=== PATIENT | female | born 1995 | race Caucasian/White ===

== ENCOUNTER 2016-10-31 17:40 | Emergency (ER) | payer OTHER ==
[2016-10-31] MEDS ORDERED: Ondansetron INJ* 2 MG/ML VIAL IV ONE (19:47)
[2016-10-31] MEDS ORDERED: NS 0.9% 1000 ML* 2,000 ML IV ONE (19:47)
[2016-10-31] MEDS ORDERED: NS 0.9% 1000 ML* 1,000 ML IV SCH (20:00)
[2016-10-31 20:12] LABS: Hematocrit 42 % (35-47); Hemoglobin 14.3 g/dl (12.0-16.0); Mean Corpuscular HGB Conc 34 g/dl (31-36); Mean Corpuscular Hemoglobin 30 pg (27-31); Mean Corpuscular Volume 88 fL (80-97); Mean Platelet Volume 7 um3 (7.4-10.4); Red Blood Count 4.71 10^6/ul (4.0-5.4); Red Cell Distribution Width 13 % (10.5-15); White Blood Count 10.6 10^3/ul (3.5-10.8)
[2016-10-31 20:28] LABS: ALT 17 U/L (7-52); AST 20 U/L (13-39); Albumin 4.8 g/dL (3.2-5.2); Alkaline Phosphatase 53 U/L (34-104); Anion Gap 8 mmol/L (2-11); BUN/Creatinine Ratio 10.4 (8-20); Blood Urea Nitrogen 8 mg/dL (6-24); CO2 Carbon Dioxide 26 mmol/L (22-32); Calcium 9.6 mg/dL (8.6-10.3); Chloride 103 mmol/L (101-111); EGFR African American 122.9 (>60); EGFR Non-African American 95.6 (>60); Globulin 2.8 g/dL (2-4); Glucose 86 mg/dL (70-100); Lipase 19 U/L (11.0-82.0); Potassium 3.8 mmol/L (3.5-5.0); Sodium 137 mmol/L (133-145); Total Protein 7.6 g/dL (6.4-8.9)
[2016-10-31 21:28] LABS: Urine Bacteria Absent (Absent); Urine Bilirubin Negative (Negative); Urine Glucose Negative (Negative); Urine Nitrite Negative (Negative)
--- NOTE | 2016-10-31 21:41 | ED ---
Yoana Quinones Edward, scribed for Jose Barrios on 10/31/16 at 1942 . Abdominal Pain/Female - HPI Summary HPI Summary: 20 y/o female presents to the ED c/o gradual onset diffuse ABD pain described as a burning sensation starting 10 days ago that has been getting progressively worse since it started. The ABD started when the pt was in [place]. The pain wakes her up at night, rated 6/10 in severity at triage. Associated sx: nausea, non- stop diarrhea (7x today, 3x yesterday, for one week in total), and weakness. Denies blood in stool. No relevant FHx. - History of Current Complaint Chief Complaint: EDAbdPain Stated Complaint: WEAK,ABD PAIN Time Seen by Provider: 10/31/16 19:37 Hx Obtained From: Patient Severity Currently: Moderate Pain Intensity: 6 Pain Scale Used: 0-10 Numeric Location: Diffuse Character: Burning Associated Signs and Symptoms: Positive: Nausea, Diarrhea, Other: - weakness Allergies/Adverse Reactions: Allergies Allergy/AdvReac Type Severity Reaction Status Date / Time No Known Allergies Allergy Verified 10/31/16 17:52 PMH/Surg Hx/FS Hx/Imm Hx Previously Healthy: Yes Cardiovascular History: Denies: Hx Myocardial Infarction Psychiatric History: Denies: Other Psychiatric Issues/Disorders Infectious Disease History: Reports: Traveled Outside the [place] in Last 30 Days - [place] - Family History Known Family History: Negative: Cardiac Disease, Hypertension, Diabetes - Social History Occupation: Student Lives: With Family Alcohol Use: None Hx Substance Use: No Substance Use Type: Reports: None Hx Tobacco Use: No Smoking Status (MU): Never Smoked Tobacco Review of Systems Constitutional: Negative Eyes: Negative ENT: Negative Cardiovascular: Negative Respiratory: Negative Positive: Abdominal Pain, Diarrhea, Nausea Genitourinary: Negative Musculoskeletal: Negative Skin: Negative Positive: Weakness Psychological: Normal All Other Systems Reviewed And Are Negative: Yes Physical Exam Triage Information Reviewed: Yes Vital Signs On Initial Exam: Initial Vitals Temp Pulse Resp BP Pulse Ox 98.4 F 95 16 137/94 97 10/31/16 17:50 10/31/16 17:50 10/31/16 17:50 10/31/16 17:50 10/31/16 17:50 Vital Signs Reviewed: Yes Appearance: Positive: Well-Appearing, No Pain Distress Skin: Positive: Warm, Skin Color Reflects Adequate Perfusion, Dry Head/Face: Positive: Normal Head/Face Inspection Eyes: Positive: EOMI, LENO ENT: Positive: Normal ENT inspection Neck: Positive: Supple, Nontender Respiratory/Lung Sounds: Positive: Clear to Auscultation, Breath Sounds Present Cardiovascular: Positive: RRR, Pulses are Symmetrical in both Upper and Lower Extremities Abdomen Description: Positive: Soft, Other: - Diffuse tenderness Bowel Sounds: Positive: Present Musculoskeletal: Positive: Normal, Strength/ROM Intact Neurological: Positive: Normal, Sensory/Motor Intact, Alert, Oriented to Person Place, Time Diagnostics - Vital Signs Vital Signs Temp Pulse Resp BP Pulse Ox 10/31/16 17:50 98.4 F 95 16 137/94 97 - Laboratory Result Diagrams: 10/31/16 20:00 10/31/16 20:00 Lab Statement: Any lab studies that have been ordered have been reviewed, and results considered in the medical decision making process. Abdominal Pain Fem Course/Dx - Course Course Of Treatment: 20 y/o female presents to the ED c/o gradual onset diffuse ABD pain described as a burning sensation starting 10 days ago that has been getting progressively worse since it started. The ABD started when the pt was in [place]. The pain wakes her up at night, rated 6/10 in severity at triage. Associated sx: nausea, non-stop diarrhea (7x today, 3x yesterday, for one week in total), and weakness. Denies blood in stool. No relevant FHx. Pt will be signed out to Dr. Church at shift change pending CT results. - Diagnoses Provider Diagnoses: Abdominal pain Discharge - Discharge Plan Condition: Stable Disposition: OTHER Discharge Disposition Comment: Pt will be signed out to Dr. Church at shift change pending CT results. The documentation as recorded by the Yoana chávez Edward accurately reflects the service I personally performed and the decisions made by , Jose Barrios.
[2016-10-31] MEDS ORDERED: Iohexol 300* (CONTRAST) 10 ML SDV IV ONE (21:57)
[2016-10-31 23:36] VITALS: BP 131/88
--- NOTE | 2016-11-01 07:36 | RAD ---
CLINICAL HISTORY: Appendicitis, abdominal pain diarrhea COMPARISON: None TECHNIQUE: Multiple contiguous axial CT scans were obtained of the abdomen and pelvis after the administration of intravenous contrast. Coronal and sagittal multiplanar reformations are submitted for review. Oral contrast was administered. Delayed images were obtained through the abdomen and pelvis. FINDINGS: LUNG BASES: The lung bases are clear. LIVER: The liver is normal in shape, size, contour, and attenuation. BILE DUCTS: There is no intrahepatic or extrahepatic biliary dilatation. GALLBLADDER: The gallbladder is normal, without pericholecystic inflammatory change. PANCREAS: The pancreas is normal, without mass or ductal dilatation. SPLEEN: Normal in size and appearance. UPPER GI TRACT: Evaluation of the gastrointestinal tract is limited by incomplete gastric distention. The upper GI tract is unremarkable. SMALL BOWEL AND MESENTERY: The small bowel is normal in contour, course, and caliber. There is no obstruction or dilatation. There are mildly prominent mesenteric lymph nodes. There is minimal mesenteric inflammatory change at the ileocecal junction. COLON: The colon is normal in contour, course, caliber. There is no pericolonic inflammatory change. There is a tubular, vermiform, hollow viscus that is blind ending, and originates from the cecum, consistent with a normal appendix. There is no periappendiceal inflammatory change. This is best seen on coronal images 41 through 52. ADRENALS: Normal bilaterally. KIDNEYS: The kidneys are normal in shape, size, contour, and axis. There is no hydronephrosis or nephrolithiasis. BLADDER: The bladder is smooth in contour. PELVIC ORGANS: The uterus and adnexa are grossly normal for technique. AORTA: The aorta is normal. IVC: Unremarkable LYMPH NODES: There is no lymphadenopathy by size criteria. ABDOMINAL WALL: There is no evidence for abdominal wall hernia. BONES AND SOFT TISSUES: Unremarkable OTHER: None IMPRESSION: 1. NORMAL APPENDIX. 2. MILD INFLAMMATORY CHANGE AND MILDLY PROMINENT MESENTERIC LYMPH NODES AT THE LEVEL OF THE ILEOCECAL JUNCTION.
== END 2016-10-31 23:37 ==
LOC: ED 17:40
DX: R10.9 Unspecified abdominal pain (principal); R19.7 Diarrhea, unspecified; R53.1 Weakness
CPT/HCPCS: 36415; 74177; 80053; 81003; 81015; 83690; 84702; 85025; 85610; 85730; 87045; 87046; 87077; 87899; 99283; J2405; Q9967

== ENCOUNTER 2017-01-27 06:23 | Emergency (ER) | payer OTHER ==
[2017-01-27] MEDS ORDERED: NS 0.9% 1000 ML* 1,000 ML IV ONE (07:20)
--- NOTE | 2017-01-27 08:26 | RAD ---
INDICATION: Right lower quadrant pain COMPARISON: None TECHNIQUE: Transverse and longitudinal scans of the right lower quadrant were performed utilizing grayscale and color Doppler imaging. FINDINGS: The appendix not visualized. There is no free fluid or mass in the right lower quadrant. IMPRESSION: NONVISUALIZATION APPENDIX. CLINICAL MANAGEMENT IS THEREFORE REQUIRED.
[2017-01-27 08:34] LABS: Hematocrit 39 % (35-47); Mean Corpuscular HGB Conc 34 g/dl (31-36); Mean Corpuscular Hemoglobin 29 pg (27-31); Mean Corpuscular Volume 88 fL (80-97); Mean Platelet Volume 8 um3 (7.4-10.4); Red Blood Count 4.42 10^6/ul (4.0-5.4); Red Cell Distribution Width 13 % (10.5-15); White Blood Count 7.8 10^3/ul (3.5-10.8)
[2017-01-27 08:52] LABS: ALT 8 U/L (7-52); AST 12 U/L (13-39); Albumin 4.2 g/dL (3.2-5.2); Alkaline Phosphatase 55 U/L (34-104); Amylase 58 U/L (29-103); Anion Gap 4 mmol/L (2-11); BUN/Creatinine Ratio 12.7 (8-20); Blood Urea Nitrogen 8 mg/dL (6-24); C Reactive Protein < 1.00 mg/L (< 5.00); CO2 Carbon Dioxide 27 mmol/L (22-32); Calcium 9.4 mg/dL (8.6-10.3); Chloride 105 mmol/L (101-111); EGFR African American 153.4 (>60); EGFR Non-African American 119.3 (>60); Globulin 2.7 g/dL (2-4); Glucose 94 mg/dL (70-100); Lipase 21 U/L (11.0-82.0); Potassium 3.7 mmol/L (3.5-5.0); Sodium 136 mmol/L (133-145); Total Protein 6.9 g/dL (6.4-8.9)
[2017-01-27] MEDS ORDERED: Ketorolac INJ* 30 MG/ML 1 ML VIAL IV PUSH ONE (09:47)
--- NOTE | 2017-01-27 10:01 | RAD ---
Indication: Right-sided pelvic pain. Real-time sonography of the pelvis was performed. The uterus measures 7.5 x 3.0 x 5.8 cm. Endometrial echo measures 7 mm. The right lobe measures 3.4 x 1.7 x 2.6 cm. A small amount of free fluid is noted adjacent to the right ovary. Left ovary measures 3.2 x 1.8 x 2.5 cm. No adnexal masses are noted. Flow is noted in both ovaries. IMPRESSION: Small amount of free fluid surrounding the right ovary. Otherwise unremarkable pelvic ultrasound.
[2017-01-27 10:23] LABS: Urine Bilirubin Negative (Negative); Urine Glucose Negative (Negative); Urine Nitrite Negative (Negative)
[2017-01-27 10:55] VITALS: BP 133/82
--- NOTE | 2017-01-28 07:41 | ED ---
Jamie Quinones Angela, scribed for Kishor Clifton MD on 01/27/17 at 0710 . Abdominal Pain/Female - HPI Summary HPI Summary: This pt is a 21 y/o female presenting to [facility] c/o RLQ abd pain since 529 today. Pt notes she woke up with the pain this morning. She describes her pain as non-radiating and as pressure, fullness, and bloating. She rates her pain 4/ 10 in severity. Associated symptoms include nausea. Pt denies vomiting, diarrhea. LMP: January 07. Pt notes she has severe painful periods every month. She denies any past surgeries. Pt was in the ED in late Oct/early Nov for abd pain. - History of Current Complaint Chief Complaint: EDAbdPain Stated Complaint: RIGHT SIDED FLANK PAIN Hx Obtained From: Patient Onset/Duration: Lasting Hours, Still Present Timing: Hours Severity Currently: Moderate Pain Intensity: 4 Pain Scale Used: 0-10 Numeric Location: Discrete At: RLQ Radiates: No Character: Other: - pressure, fullness Associated Signs and Symptoms: Positive: Nausea. Negative: Vomiting, Diarrhea Allergies/Adverse Reactions: Allergies Allergy/AdvReac Type Severity Reaction Status Date / Time No Known Allergies Allergy Verified 01/27/17 06:31 PMH/Surg Hx/FS Hx/Imm Hx Endocrine/Hematology History: Denies: Hx Diabetes Cardiovascular History: Denies: Hx Hypertension, Hx Myocardial Infarction History: Denies: Hx Dialysis, Hx Renal Disease Psychiatric History: Denies: Other Psychiatric Issues/Disorders - Immunization History Date of Tetanus Vaccine: utd Date of Influenza Vaccine: fall 2015 Infectious Disease History: No Infectious Disease History: Denies: Traveled Outside the [place] in Last 30 Days - Family History Known Family History: Negative: Cardiac Disease, Hypertension, Diabetes - Social History Alcohol Use: None Hx Substance Use: No Substance Use Type: Reports: None Hx Tobacco Use: No Smoking Status (MU): Never Smoked Tobacco Review of Systems Negative: Fever, Chills Eyes: Negative ENT: Negative Cardiovascular: Negative Respiratory: Negative Positive: Abdominal Pain, Nausea. Negative: Vomiting, Diarrhea Genitourinary: Negative All Other Systems Reviewed And Are Negative: Yes Physical Exam - Summary Physical Exam Summary: VITAL SIGNS: Reviewed. GENERAL: Patient is a well-developed and nourished female who is lying comfortable in the stretcher. Patient is not in any acute respiratory distress. HEAD AND FACE: Normocephalic and atraumatic. EYES: PERRLA, EOMI x 2, No injected conjunctiva. EARS: Hearing grossly intact. Ear canals and tympanic membranes are WNL. MOUTH: Oropharynx within normal limits. NECK: Supple, trachea is midline, no adenopathy, no JVD. CHEST: Symmetric, no tenderness at palpation LUNGS: Clear to auscultation bilaterally. No wheezing or crackles. CVS: RRR, S1 and S2 present, no murmurs or gallops appreciated. ABDOMEN: Soft. RLQ tenderness. No signs of distention. Positive bowel sounds. No rebound no guarding, and no masses palpated. No abdominal bruit or pulsations. Right pelvic tenderness. EXTREMITIES: FROM in all major joints, no edema, no cyanosis or clubbing. NEURO: Alert and oriented x 3. No acute neurological deficits. Speech is normal. SKIN: Dry and warm Triage Information Reviewed: Yes Vital Signs On Initial Exam: Initial Vitals Temp Pulse Resp BP Pulse Ox 98.2 F 92 16 133/86 99 01/27/17 06:29 01/27/17 06:29 01/27/17 06:29 01/27/17 06:29 01/27/17 06:29 Vital Signs Reviewed: Yes - Omega Coma Scale Coma Scale Total: 15 Diagnostics - Vital Signs Vital Signs Temp Pulse Resp BP Pulse Ox 01/27/17 06:29 98.2 F 92 16 133/86 99 - Laboratory Result Diagrams: 01/27/17 08:20 01/27/17 08:20 Lab Statement: Any lab studies that have been ordered have been reviewed, and results considered in the medical decision making process. - Ultrasound No standard instances Ultrasound Interpretation: Positive (See Comments) - Appendix US IMPRESSION: Nonvisualization appendix. Clinical management is therefore required. ED physician has reviewed this radiology report and agrees. Ultrasound Interpretation Completed By: Radiologist - Additional Comments Diagnostic Additional Comments: Pelvic US, per radiologist: IMPRESSION: Small amount of free fluid surrounding the right ovary. Otherwise unremarkable pelvic ultrasound. ED physician has reviewed this radiology report and agrees. Re-Evaluation - Re-Evaluation First Eval Re-Evaluation Time: 10:35 Comment: I reviewed the US appendix and pelvic results with the pt. Abdominal Pain Fem Course/Dx - Course Course Of Treatment: This pt is a 21 y/o female presenting to [facility] c/o RLQ abd pain since 529 today. Pt notes she woke up with the pain this morning. She describes her pain as non-radiating and as pressure, fullness, and bloating. She rates her pain 4/10 in severity. Associated symptoms include nausea. Pt denies vomiting, diarrhea. LMP: January 07. Pt notes she has severe painful periods every month. She denies any past surgeries. Pt was in the ED in late Oct/early Nov for abd pain. Test results without any significant abnormalities. Urinalysis is negative for a UTI. test is negative. Appendix US shows nonvisualization appendix. Clinical management is therefore required. Pelvic US reveals Small amount of free fluid surrounding the right ovary. Otherwise unremarkable pelvic ultrasound. Both tests are negative. Pt is not sexually active therefore she declined a pelvic exam. I have no suspicion for appendicitis because in the physical exam the RLQ pain has decreased and there is no elevated WBC or CRP. I discussed the test results and findings with the pt and she also agrees that at this time we wont do an abd/ pel CT. However, she was strongly recommend that if she has increased pain in RLQ, nausea, vomiting, and fever she should immediately return to the ED to rule out acute appendicitis. However, at this time the pain has resolved, she is ambulating and drinking/eating without any abnormalities. - Diagnoses Provider Diagnoses: RLQ abdominal pain Discharge - Discharge Plan Condition: Stable Disposition: HOME Patient Education Materials: Abdominal Pain (ED) Referrals: [facility] - Pradeep STANFORD [Primary Care Provider] - Additional Instructions: Please follow up with your primary care provider. RETURN TO THE ED FOR ANY WORSENING SYMPTOMS. The documentation as recorded by the Jamie chávez Angela accurately reflects the service I personally performed and the decisions made by me, Kishor Clifton MD.
== END 2017-01-27 10:53 | disposition home or self-care (01) ==
LOC: ED 06:23
DX: R10.31 Right lower quadrant pain (principal); R11.0 Nausea
CPT/HCPCS: 36415; 76705; 76856; 80053; 81003; 82150; 83690; 84702; 85025; 86140; 96374; 99283

== ENCOUNTER 2018-09-30 22:27 | Emergency (ER) | payer OTHER ==
--- NOTE | 2018-10-01 01:05 | ED ---
HPI Chest Pain - HPI Summary HPI Summary: This pt is a 22 y/o female presenting to [facility] c/o multiple episodes of chest pain since 21:00 on 09/30/18. Pt reports she felt well during the day and was at home doing some writing. She states she did not eat anything unusual today. Around 21:00 pt was on her phone and suddenly experienced chest tightness. Pt describes it was hard and uncomfortable to take a deep breath and had shallow breathing. She reports a fast heart rate but denies feeling palpitations. She notes she opened the window and walked around a little bit and chest pain resolved. Pt states 10 minutes later she experienced a second episode of chest pain. She then notes she began to have more frequent episodes. Denies nausea, vomiting, diaphoresis per triage note. Denies any recent stress in her life. Pt graduated from [employer] in February 2018 with a degree in Biochem. She is currently doing research now. When she was in grade 9 or 10 she was walking a lot and had episode of chest pain that was more localized. She was given antiinflammatory and chest pain resolved. She has not had any chest pain since then. Denies any PMHx. Pt takes a supplemental vitamin. LMP: 3 weeks ago, reports it was normal. Denies chance of . - History of Current Complaint Chief Complaint: EDChestPainROMI Time Seen by Provider: 09/30/18 22:41 Hx Obtained From: Patient Onset/Duration: Started Hours Ago, Still Present Timing: Lasting Hours Current Severity: Mild Pain Intensity: 1 Pain Scale Used: 0-10 Numeric Chest Pain Location: Diffuse Chest Pain Radiates: No Character: Tightness Aggravating Factor(s): Nothing Alleviating Factor(s): Nothing Associated Signs and Symptoms: Positive: Chest Pain, Shortness of Breath, Diaphoresis. Negative: Fever, Chills, Nausea, Vomiting - Allergy/Home Medications Allergies/Adverse Reactions: Allergies Allergy/AdvReac Type Severity Reaction Status Date / Time No Known Allergies Allergy Verified 09/30/18 22:39 Home Medications: Home Medications Multivitamin [Multiple Vitamins] 1 tab PO DAILY 10/01/18 [History Confirmed ] PMH/Surg Hx/FS Hx/Imm Hx Endocrine/Hematology History: Denies: Hx Diabetes Cardiovascular History: Denies: Hx Hypertension, Hx Myocardial Infarction History: Denies: Hx Dialysis, Hx Renal Disease Psychiatric History: Denies: Other Psychiatric Issues/Disorders - Immunization History Date of Tetanus Vaccine: utd Date of Influenza Vaccine: fall 2015 Infectious Disease History: No Infectious Disease History: Reports: Traveled Outside the [place] in Last 30 Days - Family History Known Family History: Negative: Cardiac Disease, Hypertension, Diabetes - Social History Alcohol Use: None Hx Substance Use: No Substance Use Type: Reports: None Hx Tobacco Use: No Smoking Status (MU): Never Smoked Tobacco Review of Systems Negative: Fever, Skin Diaphoresis Positive: Chest Pain. Negative: Palpitations Positive: Shortness Of Breath Negative: Vomiting, Nausea All Other Systems Reviewed And Are Negative: Yes Physical Exam - Summary Physical Exam Summary: Appearance: Well-appearing, Well-nourished, lying in bed comfortably Skin: Warm, dry, no obvious rash Eyes: sclera anicteric, no conjunctival pallor ENT: mucous membranes moist, pharynx appears normal Neck: Supple, nontender Respiratory: Clear to auscultation, no signs of respiratory distress Cardiovascular: Normal S1, S2. No murmurs. Normal distal pulses in tibial and radial bilaterally. Abdomen: Soft, nontender, normal active bowel sounds present Musculoskeletal: Normal, Strength/ROM Intact Neurological: A&Ox3, awake and alert, mentation is normal, speech is fluent and appropriate Psychiatric: affect is normal, does not appear anxious or depressed Triage Information Reviewed: Yes Vital Signs On Initial Exam: Initial Vitals Temp Pulse Resp BP Pulse Ox 98.8 F 90 16 126/82 100 09/30/18 22:28 09/30/18 22:28 09/30/18 22:28 09/30/18 22:28 09/30/18 22:28 Vital Signs Reviewed: Yes Diagnostics - Vital Signs Vital Signs Temp Pulse Resp BP Pulse Ox 10/01/18 00:40 98.9 F 68 16 121/77 98 09/30/18 22:28 98.8 F 90 16 126/82 100 - Laboratory Result Diagrams: 10/01/18 01:12 10/01/18 01:12 Lab Statement: Any lab studies that have been ordered have been reviewed, and results considered in the medical decision making process. - Radiology Chest XR Radiology Interpretation Completed By: ED Physician Summary of Radiographic Findings: No acute process - EKG 22:31 Cardiac Rate: NL - at 93 bpm EKG Rhythm: Sinus Rhythm Summary of EKG Findings: NSR at 93 BPM, P waves, QRS complex, and T waves are within normal limits, T waves and intervals are normal, no ischemic changes. This is a normal EKG. Chest Pain Course/Dx - Course Assessment/Plan: Pt is a 22 y/o female presenting to [facility] c/o multiple episodes of chest pain since 21:00 on 09/30/18. She descriens chest pain as tightness. Pt reports SOB and describes it as hard and uncomfortable to take a deep breath and with shallow breathing. She reports a fast heart rate but denies feeling palpitations. Pt is PERC negative. Lab results are unremarkable. Chest XR shows no acute process. EKG shows normal sinus rhythm at 93 bpm. Pt will be discharged home with follow up from [facility]. She was given a prescription for Ativan. - Diagnoses Provider Diagnoses: Panic attack Discharge - Sign-Out/Discharge Documenting (check all that apply): Patient Departure - Discharge home Patient Received Moderate/Deep Sedation with Procedure: No - Discharge Plan Condition: Good Disposition: HOME Prescriptions: LORazepam TAB(*) [Ativan 0.5 MG TAB (*)] 0.5 mg PO Q8H PRN #10 tab MDD 2 PRN Reason: Anxiety Patient Education Materials: Panic Attack (ED) Referrals: [facility] - Pradeep STANFORD [Primary Care Provider] - Additional Instructions: The tests we ran tonight did not show any sign of organic, physical illness causing your symptoms, so I do think this is an unusual case of panic attack. The symptoms usually resolve on their own, but can recur, so I have sent in a prescription for ativan which you can take as needed if the symptoms recur and are more than just mild. There are other techniques that can help, such as square breathing, which you can research online. - Billing Disposition and Condition Condition: GOOD Disposition: Home - Attestation Statements Document Initiated by Cierra: Yes Documenting Scribe: Mari Ayala Provider For Whom Cierra is Documenting (Include Credential): Rey Marquez MD Scribe Attestation: Mari Quinones, scribed for Rey Marquez MD on 10/01/18 at 1909. Scribe Documentation Reviewed: Yes Provider Attestation: The documentation as recorded by the Mari chávez accurately reflects the service I personally performed and the decisions made by me, Rey Marquez MD Status of Scribe Document: Viewed
[2018-10-01 01:18] LABS: ABS Basophils 0.1 10^3/ul (0-0.2); ABS Eosinophils 0.2 10^3/ul (0-0.6); ABS Lymphocytes 3.7 10^3/ul (1.0-4.8); ABS Monocytes 0.5 10^3/ul (0-0.8); ABS Neutrophils 2.9 10^3/ul (1.5-7.7); Eosinophil % 2.1 %; Hematocrit 40 % (35-47); Hemoglobin 13.9 g/dL (12.0-16.0); Lymphocyte % 50.7 %; Mean Corpuscular HGB Conc 35 g/dL (31-36); Mean Corpuscular Hemoglobin 30 pg (27-31); Mean Corpuscular Volume 87 fL (80-97); Mean Platelet Volume 7.4 fL (7.4-10.4); Platelet Count 278 10^3/uL (150-450); Red Blood Count 4.59 10^6 /uL (3.70-4.87); Red Cell Distribution Width 13 % (10-15); White Blood Count 7.3 10^3/uL (3.5-10.8)
[2018-10-01 01:37] LABS: ALT 9 U/L (7-52); AST 14 U/L (13-39); Albumin 4.3 g/dL (3.2-5.2); Albumin/Globulin Ratio 1.5 (1-3); Alkaline Phosphatase 60 U/L (34-104); Anion Gap 7 mmol/L (2-11); BUN/Creatinine Ratio 13.3 (8-20); Blood Urea Nitrogen 10 mg/dL (6-24); CO2 Carbon Dioxide 26 mmol/L (22-32); Calcium 9.4 mg/dL (8.6-10.3); Chloride 104 mmol/L (101-111); EGFR African American 116.9 (>60); EGFR Non-African American 96.6 (>60); Globulin 2.9 g/dL (2-4); Glucose 96 mg/dL (70-100); Potassium 3.6 mmol/L (3.5-5.0); Sodium 137 mmol/L (135-145); Total Protein 7.2 g/dL (6.4-8.9)
[2018-10-01 01:45] LABS: HCG Pregnancy < 0.60 mIU/mL
[2018-10-01 02:43] VITALS: BP 100/70
== END 2018-10-01 02:42 | disposition home or self-care (01) ==
LOC: ED 22:27
DX: F41.0 Panic disorder [episodic paroxysmal anxiety] (principal); R07.89 Other chest pain; R06.02 Shortness of breath; R61 Generalized hyperhidrosis
CPT/HCPCS: 36415; 71046; 80053; 84484; 84702; 85025; 93005; 99283